=== PATIENT | female | born 1955 | race Caucasian/White ===

== ENCOUNTER → 2019-05-14 12:59 | Outpatient (CLI) | payer MEDICARE, SELFPAY ==
[2014-08-17 16:22] VITALS: BMI 28.2
[2019-05-14 13:27] LABS: Prothrombin Time (Protime)PT. 22.9 SECONDS (11.7-14.9)
== END ==
PROVIDERS: Family Provider Internal Medicine; PCP Internal Medicine; Referring Provider Internal Medicine; Visit Provider Internal Medicine
DX: Z86.718 Personal history of other venous thrombosis and embolism (principal); Z86.711 Personal history of pulmonary embolism
CPT/HCPCS: 85610

== ENCOUNTER → 2021-04-29 | Outpatient (CLI) | payer MEDICARE, SELFPAY ==
[2021-04-29 18:02] LABS: International Normalized Ratio 1.7
== END | disposition home or self-care (01) ==
PROVIDERS: Visit Provider Internal Medicine
DX: Z86.718 Personal history of other venous thrombosis and embolism (principal)
CPT/HCPCS: 85610

== ENCOUNTER → 2021-05-22 | Outpatient (CLI) | payer MEDICARE, SELFPAY ==
[2021-05-22 18:39] LABS: International Normalized Ratio 2.3; Prothrombin Time (Protime)PT. 24.4 SECONDS (11.7-14.9)
== END | disposition home or self-care (01) ==
PROVIDERS: Visit Provider Clinical Nurse Specialist
DX: Z86.718 Personal history of other venous thrombosis and embolism (principal)
CPT/HCPCS: 85610